=== PATIENT | female | born 1975 | race Caucasian/White ===

== ENCOUNTER 2019-02-03 13:01 | Day surgery (SDC) | payer OTHER ==
[2019-02-03] MEDS ORDERED: LIDOCAINE 2% (SDV) 5 ML INJ (16:02)
[2019-02-03] MEDS ORDERED: PROPOFOL 20 ML (16:02)
== END 2019-02-03 16:36 | disposition home or self-care (01) ==
LOC: GIL 13:01
DX: K92.1 Melena (principal); K64.8 Other hemorrhoids; E03.9 Hypothyroidism, unspecified
CPT/HCPCS: 45378; 84703